=== PATIENT | male | born 1995 | race Caucasian/White ===

== ENCOUNTER 2016-12-24 22:05 | Emergency (ER) | payer SELFPAY ==
[~2016-12-24] VITALS: Ht 185.4 cm; Wt 65.9 kg
[2016-12-24 22:06] VITALS: TEMP 98.5
[2016-12-24 22:45] LABS: PH 7 (5-8); SQUAMOUS EPITHELIAL None Seen /hpf; URINE APPEARANCE Clear; URINE BACTERIA None Seen /hpf; URINE BILIRUBIN Negative (NEGATIVE); URINE BLOOD Negative (NEGATIVE); URINE COLOR Straw; URINE GLUCOSE Negative (NEGATIVE); URINE KETONE Negative (NEGATIVE); URINE RBC 0-2 /hpf; URINE UROBILINOGEN Negative (NEGATIVE); URINE WBC 0-2 /hpf
[2016-12-24 23:14] VITALS: BP 120/86; PULSE 69
[2016-12-25 00:19] LABS: CHLAMYDIA/TRACH by PCR Male NOT DETECTED; Neisseria Gon by PCR Male NOT DETECTED
== END 2016-12-24 23:29 | disposition home or self-care (01) ==
LOC: COL.ER 22:05
PROVIDERS: Nurse Practitioner
DX: R30.0 Dysuria (principal)

== ENCOUNTER 2017-01-05 22:07 | Emergency (ER) | payer SELFPAY ==
[~2017-01-05] VITALS: Ht 185.4 cm; Wt 65.9 kg
[2017-01-05 22:18] VITALS: TEMP 99.3
[2017-01-05 23:28] VITALS: BP 142/80; PULSE 98
== END 2017-01-05 23:29 | disposition home or self-care (01) ==
LOC: COL.ER 22:07
DX: L98.9 Disorder of the skin and subcutaneous tissue, unspecified (principal); R36.9 Urethral discharge, unspecified
CPT/HCPCS: J0561; J0696

== ENCOUNTER 2019-02-22 18:33 | Emergency (ER) | payer SELFPAY ==
[~2019-02-22] VITALS: Ht 180.3 cm; Wt 72.7 kg
[2019-02-22 18:37] VITALS: BP 133/81; TEMP 97.6
[2019-02-22 19:20] LABS: BASO % 0.4 % (0.0-2.0); EOS # 0.1 (0.0-0.7); EOS % 2.6 % (0-4.0); GRAN # 2.6 (1.4-6.5); GRAN % 55.3 % (42.2-75.2); HEMATOCRIT 44.3 % (42.0-52.0); HEMOGLOBIN 14.8 g/dl (13.5-18.0); LYMPH # 1.6 (1.2-3.4); LYMPH % 33.3 % (20.0-51.0); MEAN CELL VOLUME 86 fl (80.0-100.0); MEAN CORPUSCULAR HEMOGLOBIN 29 pg (27.0-31.0); MEAN CORPUSCULAR HGB CONC 33 g/dl (33.0-37.0); MEAN PLATELET VOLUME 12.2 fl (7.4-10.4); MONO # 0.4 (0.1-0.6); MONO % 8.2 % (1.7-9.3); PLATELET COUNT 232 K/mm3 (130-400); RED BLOOD COUNT 5.14 M/mm3 (4.20-5.60); REDCELL DISTRIBUTION WIDTH-CV 13.3 % (11.5-14.5)
[2019-02-22 19:38] LABS: ALBUMIN 4.4 gm/dL (3.5-5.0); BILIRUBIN,TOTAL 0.6 mg/dL (0.0-1.0); CALCIUM 9.5 mg/dL (8.4-10.2); CREATININE, serum 0.8 (0.66-1.25); POTASSIUM 3.7 mmol/L (3.4-5.0); TOTAL PROTEIN 7.6 gm/dL (6.4-8.2)
[2019-02-22 20:17] VITALS: PULSE 94
== END 2019-02-22 20:20 | disposition home or self-care (01) ==
LOC: COL.ER 18:33
PROVIDERS: Emergency Medicine
DX: G43.909 Migraine, unspecified, not intractable, without status migrainosus (principal); F17.210 Nicotine dependence, cigarettes, uncomplicated
CPT/HCPCS: J0780; J1200; J7030

== ENCOUNTER 2020-12-15 14:21 | Emergency (ER) | payer SELFPAY ==
[~2020-12-15] VITALS: Ht 185.4 cm; Wt 68.2 kg
[2020-12-15 14:26] VITALS: TEMP 98
[2020-12-15] MEDS ORDERED: BACTROBAN 22GM22 GM TP (14:51)
[2020-12-15 15:06] VITALS: BP 108/62; PULSE 68
== END 2020-12-15 15:05 | disposition home or self-care (01) ==
LOC: COL.ER 14:21
DX: L03.031 Cellulitis of right toe (principal); Z87.891 Personal history of nicotine dependence